=== PATIENT | female | born 1950 | race African-American/Black ===

== ENCOUNTER 2022-07-18 10:39 | Inpatient (IN) | payer OTHER ==
[~2022-07-18] VITALS: Ht 157.5 cm; Wt 90.7 kg
[2022-07-18 12:12] LABS: BASOPHILS % 0.5 % (0.0-2.0); EOSINOPHILS % 1.5 % (0.0-5.0); HEMATOCRIT. 37.9 % (36.0-48.0); HEMOGLOBIN. 12.4 g/dL (12.0-16.0); LYMPHOCYTES % 44.7 % (20.0-50.0); MEAN CORPUSCULAR HEMOGLOBIN 29.7 pg (28.0-32.0); MEAN CORPUSCULAR VOLUME 90.9 fL (81.0-99.0); MEAN PLATELET VOLUME 8.1 fl (7.4-10.4); MONOCYTES % 10.1 % (2.0-8.0); NEUTROPHILS % 43.2 % (40.0-76.0); PLATELET 244 x1000/uL (130-400); RED BLOOD CELL COUNT 4.17 mill/uL (4.2-5.4); RED CELL DISTRIBUTION WIDTH 14.6 % (11.6-14.6)
[2022-07-18 12:20] LABS: CHLORIDE 111 mEq/L (98-107)
[2022-07-18] MEDS ORDERED: HYDRALAZINE 20MG/ML VIAL IV ONE (13:30)
[2022-07-18] MEDS ORDERED: LOSARTAN POTASSIUM 25 MG TABLET PO SCH (14:00)
[2022-07-18] MEDS ORDERED: HYDRALAZINE 20MG/ML VIAL IV SCH (14:00)
[2022-07-18] MEDS: AMLODIPINE 10MG TABLET PO SCH (16:00)
[2022-07-18 16:20] VITALS: BP 172/61
[2022-07-18 16:23] VITALS: BP 172/61
[2022-07-18] MEDS ORDERED: AMLO10TA80 MT (16:33)
[2022-07-18] MEDS: CLONIDINE 0.1MG TABLET PO PRN (17:53)
[2022-07-18] MEDS ORDERED: HYDROCODONE/ACETAMINOPHEN 5/325MG TABLET PO PRN (18:00)
[2022-07-18 20:00] VITALS: BP 140/56
[2022-07-18] MEDS ORDERED: METOPROLOL TARTRATE 25MG TABLET PO SCH (21:00)
[2022-07-18] MEDS ORDERED: HYDRALAZINE HCL 50MG TABLET PO SCH (21:00)
[2022-07-18] MEDS: ATORVASTATIN CALCIUM 10MG TABLET PO SCH (21:11)
[2022-07-18] MEDS: TRAZODONE HCL 50MG TABLET PO PRN (23:42)
[2022-07-19] VITALS: BP 140/61
[2022-07-19 04:00] VITALS: BP 138/49
[2022-07-19 07:20] LABS: BASOPHILS % 0.4 % (0.0-2.0); EOSINOPHILS % 1.7 % (0.0-5.0); HEMATOCRIT. 36.1 % (36.0-48.0); HEMOGLOBIN. 11.7 g/dL (12.0-16.0); LYMPHOCYTES % 41.1 % (20.0-50.0); MEAN CORPUSCULAR HEMOGLOBIN 29.2 pg (28.0-32.0); MEAN CORPUSCULAR VOLUME 90.5 fL (81.0-99.0); MEAN PLATELET VOLUME 8.5 fl (7.4-10.4); MONOCYTES % 9.4 % (2.0-8.0); NEUTROPHILS % 47.4 % (40.0-76.0); PLATELET 244 x1000/uL (130-400); RED BLOOD CELL COUNT 3.99 mill/uL (4.2-5.4); RED CELL DISTRIBUTION WIDTH 14.5 % (11.6-14.6)
[2022-07-19 07:29] LABS: CHLORIDE 110 mEq/L (98-107)
[2022-07-19 07:30] LABS: CLARITY URINE CLEAR (CLEAR); COLOR URINE YELLOW (YELLOW); KETONES URINE NEGATIVE (NEGATIVE); LEUKOCYTE ESTERASE URINE NEGATIVE (NEGATIVE); NITRITE URINE NEGATIVE (NEGATIVE); OCCULT BLOOD URINE NEGATIVE (NEGATIVE); PH URINE 5.5 (4.5-8.0); PROTEIN URINE NEGATIVE (NEGATIVE); SPECIFIC GRAVITY URINE 1.009 (1.005-1.030); UROBILINOGEN URINE 0.2 E.U./dL (0.2-1.0)
[2022-07-19 08:00] VITALS: BP 162/69
[2022-07-19] MEDS: LOSARTAN POTASSIUM 100 MG TABLET PO SCH (09:14)
[2022-07-19] MEDS: AMLODIPINE 10MG TABLET PO SCH (09:14)
[2022-07-19] MEDS: CLONIDINE 0.1MG TABLET PO PRN (09:14)
[2022-07-19] MEDS: HYDRALAZINE HCL 100MG TABLET PO SCH ×2 (09:14→21:10)
[2022-07-19 12:00] VITALS: BP 146/58
[2022-07-19] MEDS ORDERED: HYDROCODONE/ACETAMINOPHEN 5/325MG TABLET PO PRN (13:00)
[2022-07-19 16:00] VITALS: BP 135/72
[2022-07-19 20:00] VITALS: BP 157/60
[2022-07-19] MEDS: ATORVASTATIN CALCIUM 10MG TABLET PO SCH (21:09)
[2022-07-19] MEDS: TRAZODONE HCL 50MG TABLET PO PRN (21:18)
[2022-07-20] VITALS: BP 172/77
[2022-07-20] MEDS: CLONIDINE 0.1MG TABLET PO PRN (00:56)
[2022-07-20] MEDS ORDERED: ACETAMINOPHEN 325MG TABLET PO PRN (02:15)
[2022-07-20] MEDS ORDERED: NALOXONE HCL 0.4MG/ML VIAL IV PRN (02:15)
[2022-07-20] MEDS ORDERED: ONDANSETRON HCL 4MG/2ML INJ IV PRN (02:15)
[2022-07-20 03:01] LABS: BASOPHILS % 0.3 % (0.0-2.0); EOSINOPHILS % 1.3 % (0.0-5.0); HEMATOCRIT. 37.1 % (36.0-48.0); LYMPHOCYTES % 29.9 % (20.0-50.0); MEAN CORPUSCULAR HEMOGLOBIN 29.1 pg (28.0-32.0); MEAN CORPUSCULAR VOLUME 90.1 fL (81.0-99.0); MEAN PLATELET VOLUME 8.5 fl (7.4-10.4); MONOCYTES % 8.4 % (2.0-8.0); NEUTROPHILS % 60.1 % (40.0-76.0); PLATELET 242 x1000/uL (130-400); RED BLOOD CELL COUNT 4.12 mill/uL (4.2-5.4); RED CELL DISTRIBUTION WIDTH 14.5 % (11.6-14.6)
[2022-07-20 03:03] LABS: CHLORIDE 110 mEq/L (98-107)
[2022-07-20 04:00] VITALS: BP 159/63
[2022-07-20 08:00] VITALS: BP 163/62
[2022-07-20] MEDS ORDERED: HYDRALAZINE HCL 100MG TABLET PO SCH (09:00)
[2022-07-20] MEDS: LOSARTAN POTASSIUM 100 MG TABLET PO SCH (09:00)
[2022-07-20] MEDS: ATORVASTATIN CALCIUM 10MG TABLET PO SCH (10:26)
[2022-07-20] MEDS: AMLODIPINE 10MG TABLET PO SCH (10:27)
[2022-07-20 12:01] VITALS: BP 142/56
[2022-07-20 12:27] VITALS: BP 133/64
[2022-07-20] MEDS ORDERED: HYDR100T26 PO (13:36)
[2022-07-20] MEDS ORDERED: LOSA100T3 PO ×2 (13:36)
[2022-07-21] MEDS ORDERED: AMLO10TA80 PO (20:26)
[2022-07-21] MEDS ORDERED: LOSA1TAB40 PO (20:26)
[2022-07-23] MEDS ORDERED: ATOR20TA MT ×2 (07:55→12:17)
[2022-07-23] MEDS ORDERED: ASPI-1406 MT ×2 (07:55→12:17)
[2022-07-23] MEDS ORDERED: DOCU250C14 MT (11:02)
[2022-07-23] MEDS ORDERED: HYDR26CR2 TP (11:02)
[2022-07-23] MEDS ORDERED: PHEN51CR24 TP (12:17)
[2022-07-23] MEDS ORDERED: NIFE-33 MT ×2 (12:17)
[2022-07-24] MEDS ORDERED: NIFE-32 MT (16:22)
== END 2022-07-20 16:51 | disposition home or self-care (01) | DRG 305 ==
LOC: ER 10:39 → 6WST 13:26 → EDBEDREQ 13:55 → EDBEDREQTM 13:55 → ENRESERV 15:09
PROVIDERS: ADMIT Internal Medicine; ATTEND Internal Medicine
DX: I16.0 Hypertensive urgency (principal); Z93.3 Colostomy status; E66.9 Obesity, unspecified; E78.5 Hyperlipidemia, unspecified; Z88.5 Allergy status to narcotic agent; Z79.899 Other long term (current) drug therapy; Z68.36 Body mass index [BMI] 36.0-36.9, adult; I10 Essential (primary) hypertension; I34.0 Nonrheumatic mitral (valve) insufficiency
CPT/HCPCS: 36415; 71045; 76770; 80048; 80053; 80061; 80076; 81003; 83036; 83735; 83880; 84484; 85025; 93005; 93306; 93970; 99291; J0360

== ENCOUNTER 2022-07-24 19:01 | Emergency (ER) | payer OTHER ==
[~2022-07-24] VITALS: Ht 160 cm; Wt 81.0 kg
[~2022-07-24 19:01] MED LIST: ASPI-1406 MT; ATOR20TA MT; DOCU250C14 MT; HYDR100T26 PO; HYDR26CR2 TP; LOSA1TAB40 PO; NIFE-32 MT; NIFE-33 MT; PHEN51CR24 TP
[2022-07-24 19:05] VITALS: BP 151/64
== END 2022-07-24 20:15 | disposition left against medical advice (07) ==
LOC: ER 19:01
DX: Z53.21 Procedure and treatment not carried out due to patient leaving prior to being seen by health care provider (principal)
CPT/HCPCS: 82962; 93005; 99283

== ENCOUNTER 2022-07-25 19:34 | Inpatient (IN) | payer OTHER ==
[~2022-07-25] VITALS: Ht 157.5 cm; Wt 90.7 kg
[~2022-07-25 19:34] MED LIST changes: -NIFE-33 MT
[2022-07-25] MEDS ORDERED: CLONIDINE 0.2MG TABLET PO ONE (21:45)
[2022-07-25] MEDS ORDERED: NITROGLYCERIN OINT 1GM/INCH UDPKT TD ONE (23:00)
[2022-07-25] MEDS ORDERED: PIPERACILLIN/TAZ 3.375G PREMIX 50 ML IV ONE (23:00)
[2022-07-25] MEDS ORDERED: VANCOMYCIN 1G PREMIX 200 ML IV ONE (23:00)
[2022-07-25] MEDS ORDERED: FUROSEMIDE 40MG/4ML VIAL IV ONE (23:00)
[2022-07-25] MEDS ORDERED: ASPIRIN 325MG EC TABLET PO ONE (23:45)
[2022-07-25 23:53] LABS: BASOPHILS % 0.3 % (0.0-2.0); EOSINOPHILS % 0.4 % (0.0-5.0); HEMATOCRIT. 34.4 % (36.0-48.0); HEMOGLOBIN. 11.1 g/dL (12.0-16.0); LYMPHOCYTES % 27.2 % (20.0-50.0); MEAN CORPUSCULAR HEMOGLOBIN 29.3 pg (28.0-32.0); MEAN CORPUSCULAR VOLUME 90.9 fL (81.0-99.0); MEAN PLATELET VOLUME 8.5 fl (7.4-10.4); MONOCYTES % 8.5 % (2.0-8.0); NEUTROPHILS % 63.6 % (40.0-76.0); PLATELET 261 x1000/uL (130-400); RED BLOOD CELL COUNT 3.79 mill/uL (4.2-5.4); RED CELL DISTRIBUTION WIDTH 14.1 % (11.6-14.6)
[2022-07-26] VITALS (9 sets, daily range): BP systolic 92–155; BP diastolic 65–90
[2022-07-26] LABS: CHLORIDE 109 mEq/L (98-107)
[2022-07-26 04:16] LABS: CLARITY URINE CLEAR (CLEAR); COLOR URINE YELLOW (YELLOW); KETONES URINE NEGATIVE (NEGATIVE); LEUKOCYTE ESTERASE URINE NEGATIVE (NEGATIVE); NITRITE URINE NEGATIVE (NEGATIVE); OCCULT BLOOD URINE NEGATIVE (NEGATIVE); PH URINE 5.5 (4.5-8.0); PROTEIN URINE NEGATIVE (NEGATIVE); SPECIFIC GRAVITY URINE 1.009 (1.005-1.030); UROBILINOGEN URINE 0.2 E.U./dL (0.2-1.0)
[2022-07-26] MEDS: ONDANSETRON HCL 4MG/2ML INJ IV PRN (11:59)
[2022-07-26] MEDS: LOSARTAN POTASSIUM 100 MG TABLET PO SCH (12:00)
[2022-07-26] MEDS: AMLODIPINE 10MG TABLET PO SCH (12:00)
[2022-07-26] MEDS: HYDROCHLOROTHIAZIDE 25MG TABLET PO SCH (12:00)
[2022-07-26] MEDS: ATORVASTATIN CALCIUM 10MG TABLET PO SCH (21:38)
[2022-07-26] MEDS ORDERED: NALOXONE HCL 0.4MG/ML VIAL IV PRN (22:45)
[2022-07-26] MEDS: HYDROCODONE/ACETAMINOPHEN 5/325MG TABLET PO PRN (22:57)
[2022-07-27] VITALS (12 sets, daily range): BP systolic 101–163; BP diastolic 51–122
[2022-07-27 06:33] LABS: BASOPHILS % 0.3 % (0.0-2.0); EOSINOPHILS % 2.2 % (0.0-5.0); HEMATOCRIT. 32.7 % (36.0-48.0); HEMOGLOBIN. 10.7 g/dL (12.0-16.0); LYMPHOCYTES % 42.9 % (20.0-50.0); MEAN CORPUSCULAR HEMOGLOBIN 29.8 pg (28.0-32.0); MEAN CORPUSCULAR VOLUME 90.8 fL (81.0-99.0); MEAN PLATELET VOLUME 8.9 fl (7.4-10.4); MONOCYTES % 11.5 % (2.0-8.0); NEUTROPHILS % 43.1 % (40.0-76.0); PLATELET 241 x1000/uL (130-400); RED BLOOD CELL COUNT 3.61 mill/uL (4.2-5.4); RED CELL DISTRIBUTION WIDTH 14.1 % (11.6-14.6)
[2022-07-27] MEDS: HYDROCHLOROTHIAZIDE 25MG TABLET PO SCH (09:22)
[2022-07-27] MEDS: AMLODIPINE 10MG TABLET PO SCH (09:23)
[2022-07-27] MEDS: ONDANSETRON HCL 4MG/2ML INJ IV PRN (09:23)
[2022-07-27] MEDS: LOSARTAN POTASSIUM 100 MG TABLET PO SCH (09:23)
[2022-07-27] MEDS ORDERED: SODIUM CHLORIDE 0.9% 1,000 ML IV SCH (14:30)
[2022-07-27] MEDS: FAMOTIDINE 20MG TABLET PO SCH (15:10)
[2022-07-27] MEDS ORDERED: SODIUM CHLORIDE 0.9% 500 ML IV SCH (15:45)
[2022-07-27] MEDS ORDERED: MIDODRINE HCL 5MG TABLET PO SCH (16:00)
[2022-07-27] MEDS ORDERED: ZOLPIDEM TARTRATE 5MG TABLET PO PRN (18:30)
[2022-07-27] MEDS: ATORVASTATIN CALCIUM 10MG TABLET PO SCH (20:32)
[2022-07-27] MEDS: HYDROCODONE/ACETAMINOPHEN 5/325MG TABLET PO PRN (22:09)
[2022-07-28] VITALS (10 sets, daily range): BP systolic 138–162; BP diastolic 52–84
[2022-07-28 08:08] LABS: BASOPHILS % 0.3 % (0.0-2.0); EOSINOPHILS % 2.2 % (0.0-5.0); HEMATOCRIT. 34.9 % (36.0-48.0); HEMOGLOBIN. 11.2 g/dL (12.0-16.0); LYMPHOCYTES % 40.2 % (20.0-50.0); MEAN CORPUSCULAR HEMOGLOBIN 28.9 pg (28.0-32.0); MEAN CORPUSCULAR VOLUME 90.3 fL (81.0-99.0); MEAN PLATELET VOLUME 8.5 fl (7.4-10.4); MONOCYTES % 11.1 % (2.0-8.0); NEUTROPHILS % 46.2 % (40.0-76.0); PLATELET 253 x1000/uL (130-400); RED BLOOD CELL COUNT 3.87 mill/uL (4.2-5.4)
[2022-07-28] MEDS: LOSARTAN POTASSIUM 100 MG TABLET PO SCH ×2 (09:00→12:06)
[2022-07-28] MEDS: AMLODIPINE 10MG TABLET PO SCH (09:25)
[2022-07-28] MEDS: FAMOTIDINE 20MG TABLET PO SCH (09:43)
[2022-07-28] MEDS ORDERED: MAGNESIUM HYDROXIDE 400MG/5ML 30ML UDC PO NR (10:30)
[2022-07-28] MEDS: HYDROCHLOROTHIAZIDE 25MG TABLET PO SCH (12:06)
[2022-07-28] MEDS ORDERED: LOSA100T3 MT ×2 (12:40)
[2022-07-28] MEDS ORDERED: AMLO10TA4 MT (12:40)
[2022-07-28] MEDS ORDERED: HYDR25TA MT (12:40)
[2022-07-28] MEDS ORDERED: ACETAMINOPHEN 325MG TABLET PO PRN (12:45)
[2022-07-28] MEDS ORDERED: LACTULOSE 20G/30ML UDC PO NR (13:00)
[2022-07-28] MEDS ORDERED: LOSA50TA3 MT (14:14)
[2022-07-28] MEDS ORDERED: LOSARTAN POTASSIUM 50 MG TABLET PO NR (14:15)
== END 2022-07-28 16:45 | disposition home or self-care (01) | DRG 291 ==
LOC: ER 19:34 → 5EST 23:31 → ENRESERV 07-26 02:07
PROVIDERS: ADMIT Internal Medicine; ATTEND Internal Medicine
DX: I11.0 Hypertensive heart disease with heart failure (principal); I50.33 Acute on chronic diastolic (congestive) heart failure; N17.0 Acute kidney failure with tubular necrosis; I16.0 Hypertensive urgency; E78.5 Hyperlipidemia, unspecified; Z20.822 Contact with and (suspected) exposure to COVID-19; E78.00 Pure hypercholesterolemia, unspecified; D64.9 Anemia, unspecified; K59.00 Constipation, unspecified; Z88.8 Allergy status to other drugs, medicaments and biological substances; Z93.3 Colostomy status; Z79.899 Other long term (current) drug therapy; Z86.73 Personal history of transient ischemic attack (TIA), and cerebral infarction without residual deficits; Z79.82 Long term (current) use of aspirin
CPT/HCPCS: 36415; 71045; 80048; 80053; 81003; 83605; 83735; 83880; 84484; 85025; 87426; 99291; C9803; J1940; J2405; J2543; J3370